=== PATIENT | female | born 2000 | race American Indian/Alaskan Native ===

== ENCOUNTER 2024-09-14 05:28 | Inpatient (IN) | payer OTHER ==
[~2024-09-14] VITALS: Ht 160 cm; Wt 82.6 kg
[~2024-09-14 05:28] MED LIST: PRENATAL CAPLE1 EACH PO
[2024-09-14 05:40] VITALS: BP 127/84
[2024-09-14] MEDS ORDERED: FOLIC ACID20 MG (06:13)
[2024-09-14 06:20] VITALS: BP 127/84
[2024-09-14 06:29] LABS: URINE APPEARANCE Clear; URINE BILIRRUBIN Negative (NEGATIVE); URINE BLOOD Negative; URINE COLOR Yellow; URINE GLUCOSE Negative (NEGATIVE); URINE KETONE Negative (NEGATIVE); URINE LEUKOCYTE Negative; URINE NITRATE Negative; URINE PROTEIN Negative (NEGATIVE)
[2024-09-14 06:30] LABS: URINE BACTERIA 573.9 uL (0.0-1933); URINE EPITHELIAL CELLS 25.4 uL (0.0-38.8); URINE WBC 16.6 uL (0.0-23.2)
[2024-09-14 06:32] LABS: URINE CAST 0.14 uL (0.0-1.40); URINE RBC 0.8 uL (0.0-20.8)
[2024-09-14 06:43] LABS: HEMATOCRIT 34.9 % (36.0-45.00); HEMOGLOBIN 11.8 g/dL (12.0-15.00); MEAN CELL VOLUME 89.5 fL (80.00-100.00); MEAN CORPUSCULAR HEMOGLOBIN 30.3 pg (27.00-32.0); MEAN CORPUSCULAR HGB CONC 33.9 g/dl (32.0-36.0); PLATELET COUNT 191 K/uL (150-450); RED CELL DISTRIBUTION WIDTH 13.2 % (11.5-14.5)
[2024-09-14] MEDS ORDERED: RINGERS SOLUTION,LACTATED 1,000 ML IV SCH (06:45)
[2024-09-14 07:06] LABS: INR < 0.93; PARTIAL THROMBOPLASTIN TIME 27.5 SECONDS (22.0-34.0); PROTHROMBIN TIME 9.9 SECONDS (9.0-11.5)
[2024-09-14 07:32] VITALS: BP 118/64
[2024-09-14 11:08] VITALS: BP 112/81
[2024-09-14] MEDS ORDERED: OXYTOCIN 20 UNITS/500ML RL PIGGYBAG IV SCH (11:45)
[2024-09-14] MEDS ORDERED: PROMETHAZINE HCL 25 MG/ML AMPUL IV STA (14:22)
[2024-09-14] MEDS ORDERED: MEPERIDINE HCL/PF 50 MG/ML VIAL IV STA (14:22)
[2024-09-14 15:22] VITALS: BP 132/70
[2024-09-14] MEDS ORDERED: ERYTHROMYCIN BASE OPHT 1GM EACH TUBE OP ONE (17:45)
[2024-09-14] MEDS ORDERED: OXYTOCIN 1,000 ML IV SCH ×2 (17:45→18:00)
[2024-09-14] MEDS ORDERED: CHLORHEXIDINE GLUCONATE 120 ML BOTTLE TOP ONE (17:45)
[2024-09-14] MEDS ORDERED: ACETAMINOPHEN 500 MG GEL..CAP PO PRN (18:00)
[2024-09-14 21:23] LABS: HEMATOCRIT 36.6 % (36.0-45.00); HEMOGLOBIN 12.3 g/dL (12.0-15.00); MEAN CELL VOLUME 89.6 fL (80.00-100.00); MEAN CORPUSCULAR HEMOGLOBIN 30.1 pg (27.00-32.0); MEAN CORPUSCULAR HGB CONC 33.6 g/dl (32.0-36.0); PLATELET COUNT 201 K/uL (150-450); RED BLOOD COUNT 4.08 M/uL (4.00-6.00); RED CELL DISTRIBUTION WIDTH 13.1 % (11.5-14.5)
[2024-09-14 22:31] VITALS: BP 123/78
[2024-09-15] VITALS: BP 125/80
[2024-09-15 05:28] VITALS: BP 111/70
[2024-09-15 08:29] VITALS: BP 124/79
[2024-09-15] MEDS ORDERED: PNV,CALCIUM 72/IRON/FOLIC ACID 1 TAB TABLET PO SCH (09:00)
[2024-09-15 13:35] VITALS: BP 113/74
[2024-09-15 16:11] VITALS: BP 124/84
[2024-09-16] VITALS: BP 120/72
== END 2024-09-16 12:47 | disposition home or self-care (01) | DRG 807 ==
LOC: OB/GYN 05:28 → LDR 05:28 → OB/GYN 21:09
PROVIDERS: ADMIT Obstetrics & Gynecology; ATTEND Obstetrics & Gynecology
PROC: 10E0XZZ Delivery of Products of Conception, External Approach (ICD-10-PCS; principal; 2024-09-14)
PROC: 4A1HXCZ Monitoring of Products of Conception, Cardiac Rate, External Approach (ICD-10-PCS; 2024-09-14)
DX: O80 Encounter for full-term uncomplicated delivery (principal); Z37.0 Single live birth; Z3A.39 39 weeks gestation of pregnancy